=== PATIENT | female | born 1940 | race Caucasian/White ===

== ENCOUNTER 2016-06-27 10:33 | Inpatient (IN) | payer MEDICARE ==
[~2016-06-27] VITALS: Ht 167.6 cm; Wt 72.6 kg
[2016-06-27] VITALS (405 sets, daily range): BP systolic 74–150; BP diastolic 44–83; PULSE 71–137; TEMP 97.5–98.1; O2SAT 59–100
[~2016-06-27 10:33] MED LIST: AGGRENOX CAPSUL1 CAP PO; ALPRAZOLAM0.5 M2 PO; ALPRAZOLAM0.5 MG PO; AMLOPIDINE; ASPIRIN 32325 MG/TAB PO; ATIVAN 0.50.5 MG/TAB PO; ATORVASTATIN; BENAZEPRIL; CARDI-OMEGA1000 MG PO; CELEXA40 MG PO; CITALOPRAM40 MG PO; CLOPIDOGREL PO; COMBIVENT1 ARO IH; COZAAR100 MG PO; FISH OIL1 IU PO; GLUCOPHAGE1000 MG PO; IMDUR 60MG60 MG/TAB PO; ISMO 20MG20 MG PO; ISOSORBIDE MONO20 MG PO; LEVOTHYROXIN0.112 MG PO; LEVOXYL0.112 MG PO; LEXAPRO 10MG10 MG PO; LIPITOR40 MG PO; LISINOPRIL20 MG PO; LOPRESSOR 550 MG/TAB PO; METFORMIN500 MG PO; METOPROLOL25 MG PO; NORVASC 10MG10 MG PO; NORVASC10 MG PO; ONE DAILY1 TA1 PO; PRAVACHOL 40MG40 MG PO; PROVENTIL0.09 MG/A1 IH; SENNA-GEN8.6 MG PO; SYMBICORT1 AER IH; SYNTHROID0.125 MG/T PO; VITAMIN E-400200 IU PO; XANAX 0.5MG0.5 MG PO; XANAX0.5 MG PO; pro-air
[2016-06-27] MEDS ORDERED: HYGROTON 2525 MG/TAB PO (12:33)
[2016-06-27] MEDS ORDERED: XANAX 0.5MG0.5 MG PO (12:34)
[2016-06-27] MEDS ORDERED: ASPIRIN 81M81 MG/TA2 PO (12:39)
[2016-06-27] MEDS ORDERED: PLAVIX 75MG TAB75 MG PO (12:43)
[2016-06-27] MEDS ORDERED: PRILOSEC 20MG20 MG PO (12:43)
[2016-06-27 14:56] LABS: BASO # 0.1 (0.0-0.2); EOS % 0.1 % (0-4.0); GRAN # 5.3 (1.4-6.5); GRAN % 76.9 % (42.2-75.2); HEMATOCRIT 40.8 % (37.0-47.0); HEMOGLOBIN 12.9 g/dl (12.5-16.0); LYMPH # 0.9 (1.2-3.4); LYMPH % 12.4 % (20.0-51.0); MEAN CELL VOLUME 88 fl (80.0-100.0); MEAN CORPUSCULAR HEMOGLOBIN 28 pg (27.0-31.0); MEAN CORPUSCULAR HGB CONC 32 g/dl (33.0-37.0); MEAN PLATELET VOLUME 10.7 fl (7.4-10.4); MONO # 0.6 (0.1-0.6); PLATELET COUNT 183 K/mm3 (130-400); RED BLOOD COUNT 4.63 M/mm3 (4.10-5.30); REDCELL DISTRIBUTION WIDTH-CV 14.8 % (11.5-14.5); WHITE BLOOD COUNT 6.9 K/mm3 (4.8-10.8)
[2016-06-27 16:24] LABS: ADJUSTED CALCIUM 8.6 mg/dL (8.4-10.2); ALBUMIN 3.5 gm/dL (3.5-5.0); BILIRUBIN,TOTAL 0.5 mg/dL (0.0-1.0); CALCIUM 8.2 mg/dL (8.4-10.2); CREATININE, serum 0.84 mg/dL (0.52-1.25); MAGNESIUM 1.3 mg/dL (1.6-2.3); PHOSPHOROUS 3.1 mg/dL (2.5-4.5); TOTAL PROTEIN 6.4 gm/dL (6.4-8.2)
[2016-06-27 16:42] LABS: POTASSIUM 2.8 mmol/L (3.4-5.0)
[2016-06-28] VITALS (230 sets, daily range): BP systolic 109–165; BP diastolic 43–68; PULSE 80–91; TEMP 97–98.7; O2SAT 71–100
[2016-06-28 04:15] LABS: BASO # 0.1 (0.0-0.2); BASO % 0.8 % (0.0-2.0); EOS % 0.4 % (0-4.0); GRAN % 72.1 % (42.2-75.2); LYMPH # 1.4 (1.2-3.4); LYMPH % 16.3 % (20.0-51.0); MEAN CELL VOLUME 88 fl (80.0-100.0); MEAN CORPUSCULAR HGB CONC 32 g/dl (33.0-37.0); MONO # 0.9 (0.1-0.6); MONO % 10.3 % (1.7-9.3); PLATELET COUNT 190 K/mm3 (130-400); RED BLOOD COUNT 4.15 M/mm3 (4.10-5.30); WHITE BLOOD COUNT 8.3 K/mm3 (4.8-10.8)
[2016-06-28 04:17] LABS: HEMATOCRIT 36.5 % (37.0-47.0); HEMOGLOBIN 11.6 g/dl (12.5-16.0); MEAN CORPUSCULAR HEMOGLOBIN 28 pg (27.0-31.0)
[2016-06-28 04:27] LABS: CALCIUM 9.1 mg/dL (8.4-10.2); CREATININE, serum 0.86 mg/dL (0.52-1.25); POTASSIUM 4.2 mmol/L (3.4-5.0)
[2016-06-29] VITALS (7 sets, daily range): BP systolic 116–187; BP diastolic 50–97; PULSE 83–98; TEMP 97.4–98.7
[2016-06-30] VITALS (7 sets, daily range): BP systolic 116–152; BP diastolic 46–94; PULSE 70–80; TEMP 97.8–98.6
[2016-07-01] VITALS (7 sets, daily range): BP systolic 111–177; BP diastolic 38–83; PULSE 57–89; TEMP 97.9–98.7
[2016-07-01 12:31] LABS: ALBUMIN 4.1 gm/dL (3.5-5.0); BILIRUBIN,TOTAL 0.6 mg/dL (0.0-1.0); CALCIUM 9.1 mg/dL (8.4-10.2); CREATININE, serum 0.83 mg/dL (0.52-1.25); POTASSIUM 3.6 mmol/L (3.4-5.0); TOTAL PROTEIN 7.5 gm/dL (6.4-8.2)
[2016-07-01 12:39] LABS: INR 1.9 (0.8-3.0); PROTHROMBIN TIME 21.2 SECONDS (9.7-12.8)
[2016-07-02 02:43] VITALS: BP 151/61; PULSE 74; TEMP 98.7
[2016-07-02 09:32] VITALS: BP 138/106; PULSE 73; TEMP 97.5
[2016-07-02 12:01] VITALS: BP 127/59; PULSE 74; TEMP 97.6
[2016-07-02] MEDS ORDERED: CORDARONE200 MG/TAB PO (13:14)
[2016-07-02] MEDS ORDERED: ELIQUIS 5MG PO (15:17)
[2016-07-02] MEDS ORDERED: PREDNISONE10 MG PO (15:18)
== END 2016-07-02 13:45 | disposition home health service (06) | DRG 309 ==
LOC: IMCU 10:33 → ICU 11:37 → MEDICAL 06-28 14:50
PROC: 5A2204Z Restoration of Cardiac Rhythm, Single (ICD-10-PCS; principal; 2016-06-27)
DX: I48.91 Unspecified atrial fibrillation (principal); E44.0 Moderate protein-calorie malnutrition; J98.01 Acute bronchospasm; E11.9 Type 2 diabetes mellitus without complications; I25.10 Atherosclerotic heart disease of native coronary artery without angina pectoris; Z95.1 Presence of aortocoronary bypass graft; Z87.891 Personal history of nicotine dependence; Z95.2 Presence of prosthetic heart valve
CPT/HCPCS: 99223-AI; 99232-AI; 99233-AI; 99239; J0153; J0282; J1815; J2250; J2920; J3010; J3360; J7030; J7060

== ENCOUNTER 2016-08-14 02:51 | Inpatient (IN) | payer MEDICARE ==
[2016-08-14] VITALS (153 sets, daily range): BP systolic 104–143; BP diastolic 45–62; PULSE 64–82; TEMP 97.5–99.5; O2SAT 73–100
[~2016-08-14] VITALS: Ht 167.6 cm; Wt 67.3 kg
[~2016-08-14 02:51] MED LIST changes: +ASPIRIN 81M81 MG/TA2 PO; +CORDARONE200 MG/TAB PO; +ELIQUIS 5MG PO; +HYGROTON 2525 MG/TAB PO; +PLAVIX 75MG TAB75 MG PO; +PREDNISONE10 MG PO; +PRILOSEC 20MG20 MG PO
[2016-08-14 03:39] LABS: BASO # 0.1 (0.0-0.2); BASO % 0.9 % (0.0-2.0); EOS # 0.9 (0.0-0.7); EOS % 7.9 % (0-4.0); GRAN % 69.3 % (42.2-75.2); LYMPH # 1.6 (1.2-3.4); LYMPH % 13.9 % (20.0-51.0); MEAN CELL VOLUME 92 fl (80.0-100.0); MEAN CORPUSCULAR HGB CONC 31 g/dl (33.0-37.0); MEAN PLATELET VOLUME 9.8 fl (7.4-10.4); MONO # 0.9 (0.1-0.6); MONO % 7.6 % (1.7-9.3); PLATELET COUNT 376 K/mm3 (130-400); REDCELL DISTRIBUTION WIDTH-CV 17.5 % (11.5-14.5); WHITE BLOOD COUNT 11.5 K/mm3 (4.8-10.8)
[2016-08-14 03:45] LABS: HEMATOCRIT 22.1 % (37.0-47.0); HEMOGLOBIN 6.9 g/dl (12.5-16.0); MEAN CORPUSCULAR HEMOGLOBIN 29 pg (27.0-31.0)
[2016-08-14 03:49] LABS: ALBUMIN 3.6 gm/dL (3.5-5.0); BILIRUBIN,TOTAL 0.5 mg/dL (0.0-1.0); CALCIUM 8.7 mg/dL (8.4-10.2); CREATININE, serum 1.53 mg/dL (0.52-1.25); POTASSIUM 3.7 mmol/L (3.4-5.0); TOTAL PROTEIN 6.5 gm/dL (6.4-8.2)
[2016-08-14 04:06] LABS: TROPONIN-I 0.107 ng/mL (0.000-0.034)
[2016-08-14 04:11] LABS: INR 1.9 (0.8-3.0); PROTHROMBIN TIME 21.3 SECONDS (9.7-12.8)
[2016-08-14 04:13] LABS: PARTIAL THROMBOPLASTIN TIME 42.7 SECONDS (26.0-37.0)
[2016-08-14] MEDS ORDERED: PRILOTC (05:38)
[2016-08-14] MEDS ORDERED: ATROVENT I0.2 MG/1 M IH (06:11)
[2016-08-14] MEDS ORDERED: PROAIR HFA0.09 MG/AC IH (06:16)
[2016-08-14 07:27] LABS: PH 6 (5-8); URINE APPEARANCE Clear; URINE BILIRUBIN Negative (NEGATIVE); URINE BLOOD Negative (NEGATIVE); URINE COLOR Straw; URINE GLUCOSE Negative (NEGATIVE); URINE KETONE Negative (NEGATIVE); URINE UROBILINOGEN Negative (NEGATIVE)
[2016-08-14 07:39] LABS: SQUAMOUS EPITHELIAL 0-2 /hpf; URINE BACTERIA Rare /hpf; URINE WBC 0-2 /hpf
[2016-08-14 07:43] LABS: HEMOGLOBIN 7.2 g/dl (12.5-16.0)
[2016-08-14 09:07] LABS: TOTAL IRON BINDING CAPACITY 331 ug/dL (265-497)
[2016-08-14 09:34] LABS: FERRITIN 51 ng/mL (11-264)
[2016-08-14 15:14] LABS: HEMATOCRIT 26.7 % (37.0-47.0); HEMOGLOBIN 8.6 g/dl (12.5-16.0)
[2016-08-14 20:57] LABS: HEMOGLOBIN 9.2 g/dl (12.5-16.0)
[2016-08-15] VITALS (9 sets, daily range): BP systolic 97–130; BP diastolic 40–73; PULSE 57–75; TEMP 96.9–98.9
[2016-08-15 07:07] LABS: BASO # 0.1 (0.0-0.2); BASO % 0.9 % (0.0-2.0); EOS # 0.8 (0.0-0.7); EOS % 6.7 % (0-4.0); GRAN # 8.5 (1.4-6.5); GRAN % 72.4 % (42.2-75.2); LYMPH # 1.3 (1.2-3.4); LYMPH % 11.2 % (20.0-51.0); MEAN CELL VOLUME 92 fl (80.0-100.0); MEAN CORPUSCULAR HGB CONC 31 g/dl (33.0-37.0); MEAN PLATELET VOLUME 9.8 fl (7.4-10.4); MONO % 8.3 % (1.7-9.3); PLATELET COUNT 401 K/mm3 (130-400); RED BLOOD COUNT 2.95 M/mm3 (4.10-5.30); WHITE BLOOD COUNT 11.8 K/mm3 (4.8-10.8)
[2016-08-15 07:12] LABS: HEMATOCRIT 27.2 % (37.0-47.0); HEMOGLOBIN 8.5 g/dl (12.5-16.0); MEAN CORPUSCULAR HEMOGLOBIN 29 pg (27.0-31.0)
[2016-08-15 07:26] LABS: CALCIUM 8.2 mg/dL (8.4-10.2); CREATININE, serum 1.04 mg/dL (0.52-1.25); POTASSIUM 3.4 mmol/L (3.4-5.0)
[2016-08-15 20:23] LABS: HEMATOCRIT 25.7 % (37.0-47.0)
[2016-08-16 03:20] VITALS: BP 114/50; PULSE 64; TEMP 97.6
[2016-08-16 06:45] LABS: HEMATOCRIT 27.3 % (37.0-47.0); HEMOGLOBIN 8.4 g/dl (12.5-16.0)
[2016-08-16 07:29] VITALS: BP 126/53; PULSE 73; TEMP 98
[2016-08-16 12:28] VITALS: BP 123/44; PULSE 79; TEMP 98.7
[2016-08-16] MEDS ORDERED: FERROUS SU325 MG/TAB PO (14:37)
[2016-08-16] MEDS ORDERED: NITROSTAT0.4 MG/TAB SL (14:37)
[2016-08-16] MEDS ORDERED: NORVASC 5MG5 MG/TAB PO (14:38)
[2016-08-16] MEDS ORDERED: COZAAR 25MG25 MG/TAB PO (14:42)
== END 2016-08-16 16:15 | disposition home health service (06) | DRG 378 ==
LOC: COL.ER 02:51 → ICU 04:19 → MEDICAL 04:19 → IMCU 05:10 → MEDICAL 15:50
PROVIDERS: Family Medicine; Internal Medicine; Internal Medicine Gastroenterology; Nurse Practitioner Family
PROC: 0DJD8ZZ Inspection of Lower Intestinal Tract, Via Natural or Artificial Opening Endoscopic (ICD-10-PCS; 2016-08-15)
PROC: 0DB98ZX Excision of Duodenum, Via Natural or Artificial Opening Endoscopic, Diagnostic (ICD-10-PCS; principal; 2016-08-15 16:15)
PROC: 0D738ZZ Dilation of Lower Esophagus, Via Natural or Artificial Opening Endoscopic (ICD-10-PCS; 2016-08-15 16:15)
DX: K92.1 Melena (principal); D62 Acute posthemorrhagic anemia; N17.9 Acute kidney failure, unspecified; Z66 Do not resuscitate; D13.2 Benign neoplasm of duodenum; K22.2 Esophageal obstruction; I25.10 Atherosclerotic heart disease of native coronary artery without angina pectoris; Z95.1 Presence of aortocoronary bypass graft; Z95.2 Presence of prosthetic heart valve; I10 Essential (primary) hypertension; I48.0 Paroxysmal atrial fibrillation; J44.9 Chronic obstructive pulmonary disease, unspecified; E11.9 Type 2 diabetes mellitus without complications; Z87.891 Personal history of nicotine dependence
CPT/HCPCS: 99223-AI; 99233-AI; 99239; C1726; C9113; J2704; J3010; J7030; P9016

== ENCOUNTER 2016-08-22 10:08 | Inpatient (IN) | payer MEDICARE ==
[~2016-08-22] VITALS: Ht 167.6 cm; Wt 96.1 kg
[2016-08-22] VITALS (549 sets, daily range): BP systolic 104–138; BP diastolic 42–88; PULSE 72–77; TEMP 97.1–98.7; O2SAT 78–100
[~2016-08-22 10:08] MED LIST changes: +ATROVENT I0.2 MG/1 M IH; +COZAAR 25MG25 MG/TAB PO; +FERROUS SU325 MG/TAB PO; +NITROSTAT0.4 MG/TAB SL; +NORVASC 5MG5 MG/TAB PO; +PRILOTC; +PROAIR HFA0.09 MG/AC IH
[2016-08-22 10:45] LABS: BASO # 0.1 (0.0-0.2); EOS # 0.4 (0.0-0.7); EOS % 4.4 % (0-4.0); GRAN # 7.1 (1.4-6.5); GRAN % 78.6 % (42.2-75.2); HEMATOCRIT 26.1 % (37.0-47.0); HEMOGLOBIN 7.9 g/dl (12.5-16.0); LYMPH # 0.9 (1.2-3.4); LYMPH % 9.7 % (20.0-51.0); MEAN CELL VOLUME 92 fl (80.0-100.0); MEAN CORPUSCULAR HEMOGLOBIN 28 pg (27.0-31.0); MEAN CORPUSCULAR HGB CONC 30 g/dl (33.0-37.0); MEAN PLATELET VOLUME 9.6 fl (7.4-10.4); MONO # 0.5 (0.1-0.6); MONO % 5.9 % (1.7-9.3); PLATELET COUNT 311 K/mm3 (130-400); RED BLOOD COUNT 2.83 M/mm3 (4.10-5.30)
[2016-08-22 10:47] LABS: INR 1.1 (0.8-3.0); PROTHROMBIN TIME 11.8 SECONDS (9.7-12.8)
[2016-08-22 10:50] LABS: PARTIAL THROMBOPLASTIN TIME 37.9 SECONDS (26.0-37.0)
[2016-08-22 11:31] LABS: ADJUSTED CALCIUM 9.3 mg/dL (8.4-10.2); ALBUMIN 3.5 gm/dL (3.5-5.0); BILIRUBIN,TOTAL 0.6 mg/dL (0.0-1.0); CALCIUM 8.9 mg/dL (8.4-10.2); CREATININE, serum 1.23 mg/dL (0.52-1.25); TOTAL PROTEIN 6.6 gm/dL (6.4-8.2)
[2016-08-22 11:56] LABS: THYROID STIMULATING HORMONE 9.44 uIU/mL (0.465-4.680)
[2016-08-22 11:57] LABS: PH 5 (5-8); SQUAMOUS EPITHELIAL 0-2 /hpf; URINE APPEARANCE Clear; URINE BACTERIA None Seen /hpf; URINE BILIRUBIN Negative (NEGATIVE); URINE BLOOD Negative (NEGATIVE); URINE COLOR Yellow; URINE GLUCOSE Negative (NEGATIVE); URINE KETONE Negative (NEGATIVE); URINE RBC 0-2 /hpf; URINE UROBILINOGEN Negative (NEGATIVE); URINE WBC 0-2 /hpf
[2016-08-22] MEDS ORDERED: GLUCOPHAGE500 MG/TAB PO (15:30)
[2016-08-23] VITALS (353 sets, daily range): BP systolic 95–135; BP diastolic 41–74; PULSE 69–84; TEMP 97.8–99.2; O2SAT 76–100
[2016-08-23 07:27] LABS: BASO # 0.1 (0.0-0.2); EOS # 0.4 (0.0-0.7); EOS % 4.4 % (0-4.0); GRAN # 6.8 (1.4-6.5); GRAN % 70.9 % (42.2-75.2); LYMPH # 1.3 (1.2-3.4); LYMPH % 13.5 % (20.0-51.0); MEAN CORPUSCULAR HGB CONC 33 g/dl (33.0-37.0); MEAN PLATELET VOLUME 9.7 fl (7.4-10.4); MONO % 9.8 % (1.7-9.3); PLATELET COUNT 276 K/mm3 (130-400); RED BLOOD COUNT 4.22 M/mm3 (4.10-5.30); REDCELL DISTRIBUTION WIDTH-CV 15.9 % (11.5-14.5); WHITE BLOOD COUNT 9.7 K/mm3 (4.8-10.8)
[2016-08-23 07:36] LABS: HEMATOCRIT 36.6 % (37.0-47.0); HEMOGLOBIN 11.9 g/dl (12.5-16.0); MEAN CELL VOLUME 87 fl (80.0-100.0); MEAN CORPUSCULAR HEMOGLOBIN 28 pg (27.0-31.0)
[2016-08-23 07:44] LABS: CALCIUM 8.9 mg/dL (8.4-10.2); CREATININE, serum 0.93 mg/dL (0.52-1.25)
[2016-08-24] VITALS (11 sets, daily range): BP systolic 99–116; BP diastolic 39–65; PULSE 61–83; TEMP 97.6–98.5
[2016-08-24 12:45] LABS: BASO % 0.2 % (0.0-2.0); GRAN # 9.1 (1.4-6.5); GRAN % 89.8 % (42.2-75.2); LYMPH # 0.5 (1.2-3.4); LYMPH % 4.4 % (20.0-51.0); MEAN CELL VOLUME 88 fl (80.0-100.0); MEAN CORPUSCULAR HGB CONC 32 g/dl (33.0-37.0); MEAN PLATELET VOLUME 9.8 fl (7.4-10.4); MONO # 0.5 (0.1-0.6); MONO % 5.1 % (1.7-9.3); PLATELET COUNT 303 K/mm3 (130-400); RED BLOOD COUNT 3.85 M/mm3 (4.10-5.30); REDCELL DISTRIBUTION WIDTH-CV 15.9 % (11.5-14.5); WHITE BLOOD COUNT 10.2 K/mm3 (4.8-10.8)
[2016-08-24 12:48] LABS: HEMATOCRIT 33.8 % (37.0-47.0); HEMOGLOBIN 10.8 g/dl (12.5-16.0); MEAN CORPUSCULAR HEMOGLOBIN 28 pg (27.0-31.0)
[2016-08-25 02:19] VITALS: BP 116/55; PULSE 74; TEMP 98.3
[2016-08-25 08:00] LABS: MEAN CELL VOLUME 91 fl (80.0-100.0); MEAN CORPUSCULAR HGB CONC 30 g/dl (33.0-37.0); MEAN PLATELET VOLUME 10.5 fl (7.4-10.4); PLATELET COUNT 238 K/mm3 (130-400); RED BLOOD COUNT 3.83 M/mm3 (4.10-5.30); REDCELL DISTRIBUTION WIDTH-CV 16.2 % (11.5-14.5); WHITE BLOOD COUNT 8.8 K/mm3 (4.8-10.8)
[2016-08-25 08:03] LABS: HEMATOCRIT 34.9 % (37.0-47.0); HEMOGLOBIN 10.6 g/dl (12.5-16.0); MEAN CORPUSCULAR HEMOGLOBIN 28 pg (27.0-31.0)
[2016-08-25 08:11] LABS: CALCIUM 8.8 mg/dL (8.4-10.2); CREATININE, serum 1.04 mg/dL (0.52-1.25); POTASSIUM 4.2 mmol/L (3.4-5.0)
[2016-08-25 11:41] VITALS: BP 119/46; PULSE 72; TEMP 97.8
[2016-08-25 15:29] VITALS: BP 132/63; PULSE 81; TEMP 97.8
[2016-08-25] MEDS ORDERED: ASPIRIN E.C. 8181 MG PO (16:46)
[2016-08-25] MEDS ORDERED: TOPROL XL 25MG25 MG PO (17:10)
[2016-08-25] MEDS ORDERED: PREDNISONE20 MG PO (17:10)
== END 2016-08-25 17:50 | disposition home health service (06) | DRG 281 ==
LOC: COL.ER 10:08 → MEDICAL 11:52 → ICU 11:52 → MEDICAL 08-23 14:14
PROVIDERS: Emergency Medicine; Internal Medicine
PROC: B2111ZZ Fluoroscopy of Multiple Coronary Arteries using Low Osmolar Contrast (ICD-10-PCS; principal; 2016-08-23)
DX: I21.4 Non-ST elevation (NSTEMI) myocardial infarction (principal); D62 Acute posthemorrhagic anemia; J44.1 Chronic obstructive pulmonary disease with (acute) exacerbation; K92.2 Gastrointestinal hemorrhage, unspecified; T82.898A Other specified complication of vascular prosthetic devices, implants and grafts, initial encounter; Z66 Do not resuscitate; I10 Essential (primary) hypertension; I25.10 Atherosclerotic heart disease of native coronary artery without angina pectoris; E11.9 Type 2 diabetes mellitus without complications; I48.91 Unspecified atrial fibrillation; Z87.891 Personal history of nicotine dependence; Z95.5 Presence of coronary angioplasty implant and graft; Z95.1 Presence of aortocoronary bypass graft; Z95.2 Presence of prosthetic heart valve; K21.9 Gastro-esophageal reflux disease without esophagitis; K31.7 Polyp of stomach and duodenum
CPT/HCPCS: 99223-AI; 99233-AI; 99239; C1760; C1894; C9113; J1815; J2250; J2405; J2930; J3010; J7512; P9016; Q9967

== ENCOUNTER → 2016-09-21 | Outpatient (CLI) | payer MEDICARE ==
[~2016-09-21] MED LIST changes: +ASPIRIN E.C. 8181 MG PO; +GLUCOPHAGE500 MG/TAB PO; +PREDNISONE20 MG PO; +TOPROL XL 25MG25 MG PO
== END ==
LOC: COL.RAD 08:10
DX: J90 Pleural effusion, not elsewhere classified (principal); I25.810 Atherosclerosis of coronary artery bypass graft(s) without angina pectoris; J84.10 Pulmonary fibrosis, unspecified; I70.0 Atherosclerosis of aorta; J43.2 Centrilobular emphysema; M47.814 Spondylosis without myelopathy or radiculopathy, thoracic region; K44.9 Diaphragmatic hernia without obstruction or gangrene; K22.8 Other specified diseases of esophagus; Z95.1 Presence of aortocoronary bypass graft; Z98.890 Other specified postprocedural states
CPT/HCPCS: Q9967

== ENCOUNTER 2019-06-12 02:00 | Emergency (ER) | payer MEDICARE ==
[~2019-06-12] VITALS: Ht 170.2 cm; Wt 68.2 kg
[~2019-06-12 02:00] MED LIST changes: +ASMANEX HF200 MCG/Ac IH; +DIOVAN320 MG PO; +ELIQUIS 2.5 PO; +FLINTSTONES W/I1 CTB PO; +IPRATROPIUM BROM3 M1 IH; +LASIX 20MG TABL20 MG PO; +LASIX 40MG TABL40 MG PO; -LEVOXYL0.112 MG PO; +LEVOXYL0.125 MG PO; +LOPRESSOR 225 MG/TAB PO; +PACERONE400 MG PO; +TOPROL XL 50MG50 MG PO; +XARELTO15 MG PO
[2019-06-12 02:06] VITALS: TEMP 98
[2019-06-12] MEDS ORDERED: CORDARONE200 MG/TAB PO (02:10)
[2019-06-12] MEDS ORDERED: LASIX 40MG TABL40 MG PO (02:11)
[2019-06-12] MEDS ORDERED: LOPRESSOR 225 MG/TAB PO (02:12)
[2019-06-12] MEDS ORDERED: PRAVACHOL 40MG40 MG PO (02:13)
[2019-06-12] MEDS ORDERED: ELIQUIS 2.5 PO (02:13)
[2019-06-12 02:30] LABS: BASO # 0.1 (0.0-0.2); BASO % 1.4 % (0.0-2.0); EOS # 0.4 (0.0-0.7); EOS % 4.6 % (0-4.0); GRAN # 5.1 (1.4-6.5); GRAN % 66.8 % (42.2-75.2); LYMPH # 1.4 (1.2-3.4); LYMPH % 18.3 % (20.0-51.0); MEAN CELL VOLUME 105 fl (80.0-100.0); MEAN CORPUSCULAR HGB CONC 29 g/dl (33.0-37.0); MEAN PLATELET VOLUME 10.8 fl (7.4-10.4); MONO # 0.7 (0.1-0.6); MONO % 8.8 % (1.7-9.3); PLATELET COUNT 235 K/mm3 (130-400); RED BLOOD COUNT 2.93 M/mm3 (4.10-5.30); REDCELL DISTRIBUTION WIDTH-CV 16.2 % (11.5-14.5)
[2019-06-12 02:32] LABS: HEMATOCRIT 30.7 % (37.0-47.0); HEMOGLOBIN 8.8 g/dl (12.5-16.0); MEAN CORPUSCULAR HEMOGLOBIN 30 pg (27.0-31.0)
[2019-06-12 02:36] LABS: ALBUMIN 3.8 gm/dL (3.5-5.0); BILIRUBIN,TOTAL 0.4 mg/dL (0.0-1.0); CALCIUM 8.8 mg/dL (8.4-10.2); CREATININE, serum 1.85 (0.52-1.25); POTASSIUM 4.3 mmol/L (3.4-5.0); TOTAL PROTEIN 6.6 gm/dL (6.4-8.2)
[2019-06-12 04:12] LABS: COLLECTION METHOD CLEAN CATCH
[2019-06-12 04:26] LABS: MUCOUS Present /lpf; PH 8 (5-8); URINE APPEARANCE Cloudy; URINE BACTERIA Rare /hpf; URINE BILIRUBIN Negative (NEGATIVE); URINE BLOOD 3+ (NEGATIVE); URINE COLOR Red; URINE GLUCOSE Negative (NEGATIVE); URINE KETONE Negative (NEGATIVE); URINE LEUKOCYTE ESTERASE 2+ (NEGATIVE); URINE NITRATE Positive (NEGATIVE); URINE PROTEIN(semi-quant) 2+ (NEGATIVE); URINE RBC >50 /hpf; URINE TRIPLE PHOSPHATE CRYSTAL Present /hpf; URINE UROBILINOGEN Negative (NEGATIVE)
[2019-06-12] MEDS ORDERED: ZOFRAN ODT4 MG SL (04:41)
[2019-06-12] MEDS ORDERED: NORCO 325 MG-51 TAB PO (04:41)
[2019-06-12] MEDS ORDERED: BACTRIM DS 8001 TAB PO (04:41)
[2019-06-12 05:06] VITALS: BP 145/57; PULSE 48
== END 2019-06-12 05:20 | disposition home or self-care (01) ==
LOC: COL.ER 02:00
PROVIDERS: Emergency Medicine
DX: R10.9 Unspecified abdominal pain (principal); N30.90 Cystitis, unspecified without hematuria; I25.10 Atherosclerotic heart disease of native coronary artery without angina pectoris; I48.91 Unspecified atrial fibrillation; E11.9 Type 2 diabetes mellitus without complications; I10 Essential (primary) hypertension; K21.9 Gastro-esophageal reflux disease without esophagitis; E03.9 Hypothyroidism, unspecified; E78.5 Hyperlipidemia, unspecified; J44.9 Chronic obstructive pulmonary disease, unspecified; Z95.5 Presence of coronary angioplasty implant and graft; Z95.2 Presence of prosthetic heart valve; Z87.891 Personal history of nicotine dependence; Z79.82 Long term (current) use of aspirin; Z79.01 Long term (current) use of anticoagulants
CPT/HCPCS: A4216; J0696; J2405; J3010; J7030

== ENCOUNTER 2019-07-12 11:37 | Inpatient (IN) | payer MEDICARE ==
[~2019-07-12] VITALS: Ht 170.2 cm; Wt 69.3 kg
[2019-07-12] VITALS (8 sets, daily range): BP systolic 118–140; BP diastolic 42–68; PULSE 54–79; TEMP 97.6–98.8
[~2019-07-12 11:37] MED LIST changes: +BACTRIM DS 8001 TAB PO; +NORCO 325 MG-51 TAB PO; +ZOFRAN ODT4 MG SL
[2019-07-12 12:24] LABS: BASO # 0.1 (0.0-0.2); BASO % 1.1 % (0.0-2.0); EOS # 0.2 (0.0-0.7); EOS % 2.4 % (0-4.0); GRAN # 6.1 (1.4-6.5); GRAN % 77.4 % (42.2-75.2); LYMPH % 12.2 % (20.0-51.0); MEAN CELL VOLUME 97 fl (80.0-100.0); MEAN CORPUSCULAR HGB CONC 29 g/dl (33.0-37.0); MEAN PLATELET VOLUME 10.7 fl (7.4-10.4); MONO # 0.5 (0.1-0.6); MONO % 6.6 % (1.7-9.3); PLATELET COUNT 254 K/mm3 (130-400); RED BLOOD COUNT 2.27 M/mm3 (4.10-5.30); REDCELL DISTRIBUTION WIDTH-CV 16.7 % (11.5-14.5)
[2019-07-12 12:26] LABS: INR 1.3 (0.8-3.0); PROTHROMBIN TIME 14.9 SECONDS (9.7-12.8)
[2019-07-12 12:28] LABS: HEMATOCRIT 22.1 % (37.0-47.0); HEMOGLOBIN 6.3 g/dl (12.5-16.0); MEAN CORPUSCULAR HEMOGLOBIN 28 pg (27.0-31.0)
[2019-07-12 12:35] LABS: ALANINE AMINOTRANSFERASE 17 U/L (4-34); ALBUMIN 3.8 gm/dL (3.5-5.0); ALKALINE PHOSPHATASE 101 U/L (50-136); ANION GAP 6 mmol/L (7-16); AST,SGOT 25 U/L (15-37); BILIRUBIN,TOTAL 0.4 mg/dL (0.0-1.0); BLOOD UREA NITROGEN 34 mg/dL (7-17); CALCIUM 8.9 mg/dL (8.4-10.2); CARBON DIOXIDE 30 mmol/L (22-30); CHLORIDE 99 mmol/L (98-107); CREATININE, serum 2.23 (0.52-1.25); GLUCOSE 142 mg/dL (74-106); POTASSIUM 4.8 mmol/L (3.4-5.0); SODIUM 136 mmol/L (137-145); TOTAL PROTEIN 6.8 gm/dL (6.4-8.2)
[2019-07-12 12:46] LABS: TROPONIN-I < 0.012 ng/mL (0.000-0.035)
--- NOTE | 2019-07-12 14:22 | NUR ---
Patient arrived to Surgical unit and this nurse received report from ED department. Patient is a DNR, she has been for 1 year and lives alone. She is diabetic. She was admitted to the hospital due to weakness. She is to receive a unit of PRBC. Has an INT to her Right AC that is 20 Gauge, has NKDA, She is on Tele, one assist with walker to transfer, VSS at this time. She has a cardiac history. Patient resting in be comfortable, call light in reach and denies questions at this time. Patient wanted to know what blood type she was and she is B+. She is forgetful at times. Will continue to monitor.
--- NOTE | 2019-07-12 16:07 | NUR ---
Blood transfussion was started at 4:00 PM. Patient resting comfortable in bed at this time, call light in reach.
--- NOTE | 2019-07-12 19:00 | NUR ---
Report received, assumed care for hotel night auditor. Assessment complete. VS stable. A&Ox3-drowsy. Unit of PRBC infusing at 100ml/hr to right AC 20g without difficulty. Denies nausea/shortness of breath/pain. States she is slightly dizzy with ambulation. Instructed call for assistance to bathroom when DTV. Verbalizes understanding. Call light in reach. Will monitor.
[2019-07-12] MEDS ORDERED: IPRATROPIUM BROM3 M1 IH (19:39)
[2019-07-12] MEDS ORDERED: XANAX 0.5MG0.5 MG PO (19:43)
[2019-07-12] MEDS ORDERED: MIRALAX PA17 GM/Dose PO (19:45)
--- NOTE | 2019-07-12 19:58 | NUR ---
Reported off to night nurse, VIJAY Welch. I asked for her to clarify orders for Blood sugar checks ACHS as this was reported to this nurse via ED department when patient arrived to Surgical unit, but not in doctors orders. Also asked for clarification on diet order. This nurse spoke with Dr. Garcia and he said to put her on a regular diet over the weekend, but didn't clarify AHA or ADA. Night nurse will follow up on this. This nurse called patient's daughter to review medications with her and she reported that patient receives Xanax at bed time and PRN due to anxiety; she also get breathing treatments BID PRN and takes Miralax PRN. These meds were added to the patient's home med list and night nurse will follow up with physician on their approval.
[2019-07-12 21:47] LABS: HEMATOCRIT 26.3 % (37.0-47.0)
[2019-07-13] VITALS (7 sets, daily range): BP systolic 105–144; BP diastolic 41–68; PULSE 56–68; TEMP 98–99.3
--- NOTE | 2019-07-13 05:20 | NUR ---
Notified cardiopulmonary of request for PRN breathing treatment. States they will be up as soon as they can.
[2019-07-13 06:23] LABS: BASO # 0.1 (0.0-0.2); BASO % 0.7 % (0.0-2.0); EOS # 0.2 (0.0-0.7); EOS % 2.3 % (0-4.0); GRAN # 7.9 (1.4-6.5); GRAN % 80.7 % (42.2-75.2); LYMPH # 0.6 (1.2-3.4); LYMPH % 5.9 % (20.0-51.0); MEAN CELL VOLUME 94 fl (80.0-100.0); MEAN CORPUSCULAR HGB CONC 30 g/dl (33.0-37.0); MEAN PLATELET VOLUME 10.7 fl (7.4-10.4); MONO % 9.9 % (1.7-9.3); PLATELET COUNT 205 K/mm3 (130-400); RED BLOOD COUNT 2.64 M/mm3 (4.10-5.30); REDCELL DISTRIBUTION WIDTH-CV 16.9 % (11.5-14.5)
[2019-07-13 06:28] LABS: CALCIUM 8.5 mg/dL (8.4-10.2); CREATININE, serum 1.79 (0.52-1.25); POTASSIUM 3.9 mmol/L (3.4-5.0)
[2019-07-13 06:34] LABS: HEMATOCRIT 24.8 % (37.0-47.0); HEMOGLOBIN 7.4 g/dl (12.5-16.0); MEAN CORPUSCULAR HEMOGLOBIN 28 pg (27.0-31.0)
[2019-07-13 14:24] LABS: HEMOGLOBIN 8.9 g/dl (12.5-16.0)
--- NOTE | 2019-07-13 18:04 | NUR ---
Patient currently resting in bed. Patient showered with 1x assist this evening. Patient has reported that she did not sleep well overnight and is feeling lethargic today. Patient also asked after her H&H several times today, assured patient that numbers were improved. Patient has continued to deny pain, but did report one dark stool this morning. Patient denies further needs at this time, call light within reach.
--- NOTE | 2019-07-13 21:38 | NUR ---
PATIENT DOING WELL TONIGHT. SEEMS DROWSY AND SLEEPY. REORIENTED PATIENT TO USE CALL LIGHT, DUE TO FACT OF HAVING MULTIPLE CORDS HOOKED UP BUT PATIENT KEEPS FORGETTING. 2 L O2 VIA NC APPLIED TO MAINTAIN O2 SATS ABOVE 91. TOOK SCHEDULED MEDICATIONS CRUSHED IN APPLESAUCE WITHOUT ISSUE. IV TO R AC INFUSING WITHOUT ISSUE. DENIES PAIN. NO FURTHER NEEDS AT THIS TIME. PATIENT RESTING IN BED. WILL CONTINUE TO MONITOR. CALL LIGHT WITHIN REACH.
[2019-07-14] VITALS (9 sets, daily range): BP systolic 101–144; BP diastolic 37–85; PULSE 58–79; TEMP 97.5–98.7
[2019-07-14 06:13] LABS: BASO # 0.1 (0.0-0.2); BASO % 0.9 % (0.0-2.0); EOS # 0.1 (0.0-0.7); EOS % 1.2 % (0-4.0); GRAN # 7.3 (1.4-6.5); GRAN % 78.2 % (42.2-75.2); LYMPH # 0.8 (1.2-3.4); LYMPH % 8.3 % (20.0-51.0); MEAN CELL VOLUME 94 fl (80.0-100.0); MEAN CORPUSCULAR HGB CONC 29 g/dl (33.0-37.0); MEAN PLATELET VOLUME 10.6 fl (7.4-10.4); PLATELET COUNT 193 K/mm3 (130-400); RED BLOOD COUNT 2.51 M/mm3 (4.10-5.30); REDCELL DISTRIBUTION WIDTH-CV 16.4 % (11.5-14.5)
[2019-07-14 06:16] LABS: HEMATOCRIT 23.6 % (37.0-47.0); HEMOGLOBIN 6.9 g/dl (12.5-16.0); MEAN CORPUSCULAR HEMOGLOBIN 27 pg (27.0-31.0)
[2019-07-14 06:24] LABS: CALCIUM 8.5 mg/dL (8.4-10.2); CREATININE, serum 1.53 (0.52-1.25); POTASSIUM 3.8 mmol/L (3.4-5.0)
--- NOTE | 2019-07-14 11:09 | NUR ---
Patient resting in bed at this time, call light in reach. Blood transfusion was started. Will continue to monitor.
--- NOTE | 2019-07-14 11:15 | NUR ---
Patient resting comfortable at this time. Will continue to monitor.
--- NOTE | 2019-07-14 19:45 | NUR ---
Patient tolerated blood transfussion. She had some confusion this evening reporting that she needed to go home to have her help her. She then in the next sentence stated that she remembered that he had . The bed alarm was set, due to patient not using the call light appropriatly. Patient was started on bowel prep. Reported off to night nurse.
[2019-07-14 19:57] LABS: HEMATOCRIT 29.6 % (37.0-47.0); HEMOGLOBIN 8.9 g/dl (12.5-16.0)
--- NOTE | 2019-07-14 22:15 | NUR ---
PATIENT DOING WELL TONIGHT. DENYING PAIN. STATES SHE IS VERY TIRED. SLOWLY WORKING ON BOWEL PREP AND IS STRUGGLING TO GET IT DOWN, HAS PASSED X2 SMALL FORMED STOOLS. TOOK SCHEDULED MEDICATION CRUSHED IN APPLESAUCE. IVF TO R AC INFUSING WITHOUT ISSUE. CONSENT FOR EGD AND COLONOSCOPY SIGNED AND IN CHART. NO FURTHER NEEDS AT THIS TIME. WILL CONTINUE TO MONITOR. CALL LIGHT WITHIN REACH.
[2019-07-15] VITALS (13 sets, daily range): BP systolic 100–153; BP diastolic 49–87; PULSE 57–74; TEMP 97.3–98.7
--- NOTE | 2019-07-15 02:37 | NUR ---
IV TO R AC INFILTRATED. SEVERAL ATTEMPTS MADE TO PLACE NEW IV FAILED. CHARGE NURSE ATTEMPTED X2, LEASING SALES CONSULTANT ATTEMPTED X2. CALL PLACED TO CHRIS CRABTREE TO UPDATE HER ON SITUATION AND ENCOURAGE PICC PLACEMENT FOR FUTURE. CHRIS STATES SHE IS GOING TO COME UP AND SEE IF SHE CAN PLACE AN IV. NO FURTHER NEEDS AT THIS TIME. WILL CONTINUE TO MONITOR.
[2019-07-15 08:04] LABS: BASO # 0.1 (0.0-0.2); BASO % 0.8 % (0.0-2.0); EOS # 0.1 (0.0-0.7); EOS % 1.1 % (0-4.0); GRAN # 4.9 (1.4-6.5); LYMPH # 0.6 (1.2-3.4); MEAN CELL VOLUME 90 fl (80.0-100.0); MEAN CORPUSCULAR HGB CONC 30 g/dl (33.0-37.0); MONO # 0.6 (0.1-0.6); MONO % 9.5 % (1.7-9.3); PLATELET COUNT 138 K/mm3 (130-400); RED BLOOD COUNT 2.87 M/mm3 (4.10-5.30); REDCELL DISTRIBUTION WIDTH-CV 17.2 % (11.5-14.5)
[2019-07-15 08:08] LABS: HEMATOCRIT 25.8 % (37.0-47.0); HEMOGLOBIN 7.8 g/dl (12.5-16.0); MEAN CORPUSCULAR HEMOGLOBIN 27 pg (27.0-31.0)
[2019-07-15 08:09] LABS: CALCIUM 8.4 mg/dL (8.4-10.2); CREATININE, serum 1.42 (0.52-1.25); POTASSIUM 3.6 mmol/L (3.4-5.0)
--- NOTE | 2019-07-15 11:20 | NUR ---
First visit from the plastic molder. No needs right now.
--- NOTE | 2019-07-15 12:24 | NUR ---
Patient is leaving for surgery at this time. Fleets Enema was given and patient's stool is now a yellow color.
--- NOTE | 2019-07-15 14:28 | NUR ---
SW met with the patient to discuss discharge plan. The patient lives alone in [place]. Her three children Anibal Lockett (ph#[phone]), Rachel Liu (ph#[phone]), and Diogo Lockett (ph#[phone]) also live in [place]. She reports independence with ADLs and has a cane and rolaider that she borrowed from a friend. The patient's PCP is Dr. Marah Terry and she receives her medications at [facility]. She reports no difficulties obtaining her meds. The patient's DPOA-HC is in EMR. Her DPOA-HC is her son Anibal. The alternate is Rachel. The patient plans to return home upon discharge. PT is recommending home health. STEFANI discussed this with the patient. The patient reports that she just got done with services from [facility] and does not feel like she needs home health again at this time. STEFANI then contacted and updated the patient's son, Anibal. Anibal reports that home health was very helpful to the patient and that he would like to proceed with a referral to [facility]. He states that him and his siblings will talk to the patient about this. SW to update the patient. STEFANI contacted and faxed a referral to Kadie at [facility]. Kadie reports that they are able to accept the patient for services. SW to inform the patient and family and will continue to follow.
--- NOTE | 2019-07-15 14:54 | NUR ---
Patient resting in bed at this time, call light in reach following her procedure. Patient denies pain at this time. Currently on 0.5 L oxygen NC following procedure.
--- NOTE | 2019-07-15 17:00 | NUR ---
Patient returned from her surgery this afternoon and upon observation saw a skin tear to her righ forearm. Patient reported that it had happened when she had her procedure done. Area was cleaned and this nurse applied steri strips and secured with a bandage. Patient tolerated with only minimal discomfort reported. Patient was able to ambulate independently to the toilet and back to her bed this afternoon. She was very tired from not getting much sleep last night so did take a long nap this afternoon. Patient was seen by Dr. Munson see all new orders. IV fluids were stopped this evening. Dr. Munson was able to contact patient's daughter to provide her an update on the patient.
--- NOTE | 2019-07-15 21:15 | NUR ---
Reported off to night nurse.
[2019-07-16 00:33] VITALS: BP 148/47; PULSE 67; TEMP 98.1
--- NOTE | 2019-07-16 02:12 | NUR ---
Pt is currently sleeping in her bed lying on her right side. Warm blanket was applied at this time pt did state that she gets cold during the night. Pt has her call light within reach
--- NOTE | 2019-07-16 03:02 | NUR ---
Pt is currently sleeping in bed at this time. Her call light is within reach and her bed is in lowest position .
[2019-07-16 04:12] VITALS: BP 126/47; PULSE 71; TEMP 98.5
--- NOTE | 2019-07-16 06:10 | NUR ---
Pt currently awake lying in bed. Pt did take morning medications well. I did notice that pt tends to chew on her pills before swallowing she stated that she sometimes does this at home, it helps her swallow them. Pt drink water with her pill. She has her call light within reach and her bed is in lowest position
[2019-07-16 07:06] LABS: BASO # 0.1 (0.0-0.2); BASO % 0.5 % (0.0-2.0); EOS # 0.3 (0.0-0.7); EOS % 2.7 % (0-4.0); GRAN # 8.9 (1.4-6.5); GRAN % 85.3 % (42.2-75.2); LYMPH # 0.4 (1.2-3.4); LYMPH % 3.8 % (20.0-51.0); MEAN CELL VOLUME 90 fl (80.0-100.0); MEAN CORPUSCULAR HGB CONC 30 g/dl (33.0-37.0); MEAN PLATELET VOLUME 11.1 fl (7.4-10.4); MONO # 0.8 (0.1-0.6); MONO % 7.2 % (1.7-9.3); PLATELET COUNT 184 K/mm3 (130-400); RED BLOOD COUNT 2.96 M/mm3 (4.10-5.30); REDCELL DISTRIBUTION WIDTH-CV 17.3 % (11.5-14.5)
[2019-07-16 07:07] LABS: HEMATOCRIT 26.6 % (37.0-47.0); MEAN CORPUSCULAR HEMOGLOBIN 27 pg (27.0-31.0)
[2019-07-16 07:09] LABS: CALCIUM 8.4 mg/dL (8.4-10.2); CREATININE, serum 1.38 (0.52-1.25); POTASSIUM 3.3 mmol/L (3.4-5.0)
[2019-07-16 07:58] VITALS: BP 117/36; PULSE 72; TEMP 98.1
--- NOTE | 2019-07-16 08:32 | NUR ---
Reported off to VIJAY Kate. Pt is currently sitting up in her chair. She has her call light within reach.
--- NOTE | 2019-07-16 10:33 | NUR ---
STEFANI met with the patient to introduce oneself and to discuss home health. The patient was agreeable to HHS with [facility]. Will continue to monitor.
[2019-07-16 11:24] VITALS: BP 139/50; PULSE 69; TEMP 98
--- NOTE | 2019-07-16 11:46 | NUR ---
PT OUT TO [facility] WITH [facility] TO AMBULATE. RETURNED TO ROOM AND ATE BREAKFAST. PT IS A/O X3. PLAN ON DISCHARGE LATER TODAY.
[2019-07-16] MEDS ORDERED: FERROUS SU325 MG/TAB PO (12:03)
--- NOTE | 2019-07-16 13:36 | NUR ---
The patient is to discharge home with [facility] today, 07/15. SW presented the IM form to the patient. The patient understood and due to COVID-19 social distancing rules the patient gave SW persmission to sign on her behalf. The original was placed in the chart and copy was given to patient. STEFANI faxed discharge orders to [facility]. There are no additional needs at this time.
--- NOTE | 2019-07-16 14:39 | NUR ---
REVIEWED DISCHARGE INSTRUCTIONS WITH PT. QUESTIONS ANSWERED. PT TAKEN TO EXIT PER WHEEL CHAIR.
== END 2019-07-16 14:51 | disposition home or self-care (01) | DRG 378 ==
LOC: COL.ER 11:37 → SURG 14:05
PROVIDERS: Emergency Medicine; Internal Medicine Gastroenterology; Nurse Practitioner Family; Physician Assistant; ADMIT Internal Medicine
PROC: 0DBH8ZZ Excision of Cecum, Via Natural or Artificial Opening Endoscopic (ICD-10-PCS; 2019-07-15)
PROC: 0DBL8ZZ Excision of Transverse Colon, Via Natural or Artificial Opening Endoscopic (ICD-10-PCS; 2019-07-15)
PROC: 0DB98ZZ Excision of Duodenum, Via Natural or Artificial Opening Endoscopic (ICD-10-PCS; principal; 2019-07-15 12:30)
PROC: 0D738ZZ Dilation of Lower Esophagus, Via Natural or Artificial Opening Endoscopic (ICD-10-PCS; 2019-07-15 12:30)
DX: K92.1 Melena (principal); D62 Acute posthemorrhagic anemia; N17.9 Acute kidney failure, unspecified; E87.2 Acidosis; I50.22 Chronic systolic (congestive) heart failure; D13.2 Benign neoplasm of duodenum; K22.2 Esophageal obstruction; K59.00 Constipation, unspecified; Z66 Do not resuscitate; I48.0 Paroxysmal atrial fibrillation; K57.30 Diverticulosis of large intestine without perforation or abscess without bleeding; E87.6 Hypokalemia; E03.9 Hypothyroidism, unspecified; E78.5 Hyperlipidemia, unspecified; I25.10 Atherosclerotic heart disease of native coronary artery without angina pectoris; D12.6 Benign neoplasm of colon, unspecified; I10 Essential (primary) hypertension; E11.9 Type 2 diabetes mellitus without complications; J44.9 Chronic obstructive pulmonary disease, unspecified; K21.9 Gastro-esophageal reflux disease without esophagitis; Z95.1 Presence of aortocoronary bypass graft; Z86.73 Personal history of transient ischemic attack (TIA), and cerebral infarction without residual deficits
CPT/HCPCS: 99222-AI; 99232-AI; 99239; A9284; C1726; C9113; J2704; J7030; P9016

== ENCOUNTER 2019-08-10 20:03 | Inpatient (IN) | payer MEDICARE ==
[~2019-08-10] VITALS: Ht 170.2 cm; Wt 74.2 kg
[~2019-08-10 20:03] MED LIST changes: +MIRALAX PA17 GM/Dose PO
[2019-08-10 21:37] LABS: BASO # 0.1 (0.0-0.2); BASO % 1.2 % (0.0-2.0); EOS # 0.4 (0.0-0.7); EOS % 3.7 % (0-4.0); GRAN # 7.8 (1.4-6.5); GRAN % 77.9 % (42.2-75.2); HEMATOCRIT 35.2 % (37.0-47.0); HEMOGLOBIN 10.4 g/dl (12.5-16.0); LYMPH % 9.5 % (20.0-51.0); MEAN CELL VOLUME 92 fl (80.0-100.0); MEAN CORPUSCULAR HEMOGLOBIN 27 pg (27.0-31.0); MEAN CORPUSCULAR HGB CONC 30 g/dl (33.0-37.0); MEAN PLATELET VOLUME 10.9 fl (7.4-10.4); MONO # 0.7 (0.1-0.6); MONO % 6.8 % (1.7-9.3); PLATELET COUNT 201 K/mm3 (130-400); RED BLOOD COUNT 3.83 M/mm3 (4.10-5.30); REDCELL DISTRIBUTION WIDTH-CV 16.9 % (11.5-14.5)
[2019-08-10 21:55] LABS: ALBUMIN 3.9 gm/dL (3.5-5.0); BILIRUBIN,TOTAL 0.4 mg/dL (0.0-1.0); CALCIUM 8.9 mg/dL (8.4-10.2); CREATININE, serum 1.87 (0.52-1.25); POTASSIUM 4.4 mmol/L (3.4-5.0); TOTAL PROTEIN 6.9 gm/dL (6.4-8.2)
[2019-08-10 22:26] LABS: PRE ALBUMIN 21.7 mg/dL (17.6-36.0)
[2019-08-10 22:39] LABS: PROTHROMBIN TIME 10.6 SECONDS (9.7-12.8)
--- NOTE | 2019-08-10 22:45 | NUR ---
ADMITTED PT PER STRETCHER FROM ED, DX WITH FRACTURED LEFT HIP. IS ALERT AND ORIENTED X4. HAS SL TO LEFT FOREARM, NO REDNESS OR SWELLING NOTED.
[2019-08-10 22:53] VITALS: BP 127/33; PULSE 77; TEMP 97.9
[2019-08-10] MEDS ORDERED: LASIX 40MG TABL40 MG PO (23:07)
--- NOTE | 2019-08-10 23:19 | NUR ---
Medicated with Morphine 2mg IVP at this time for left hip pain.
[2019-08-10] MEDS ORDERED: IPRATROPIUM BROM3 M1 IH (23:23)
[2019-08-11] VITALS (10 sets, daily range): BP systolic 108–141; BP diastolic 39–56; PULSE 67–89; TEMP 97.3–98.5
--- NOTE | 2019-08-11 00:57 | NUR ---
PLACEMENT OF 16FR NICHOLE CATHETER SUCCESSFUL BY RAFAEL LINARES. RETURN OF LIGHT YELLOW URINE. PLACED PT ON HER RIGHT SIDE FOR COMFORT. MORPHINE 2MG IVP GIVEN.
[2019-08-11 01:29] LABS: COLLECTION METHOD CLEAN CATCH
--- NOTE | 2019-08-11 01:30 | NUR ---
UA sent to lab. Medicated with Xanax per her request for anxiety. IVF infusing to left arm without problem.
[2019-08-11 01:34] LABS: MUCOUS Present /lpf; PH 6 (5-8); SQUAMOUS EPITHELIAL None Seen /hpf; URINE APPEARANCE Clear; URINE BACTERIA None Seen /hpf; URINE BILIRUBIN Negative (NEGATIVE); URINE BLOOD Negative (NEGATIVE); URINE COLOR Yellow; URINE GLUCOSE Negative (NEGATIVE); URINE KETONE Negative (NEGATIVE); URINE LEUKOCYTE ESTERASE Negative (NEGATIVE); URINE NITRATE Negative (NEGATIVE); URINE PROTEIN(semi-quant) Negative (NEGATIVE); URINE RBC 0-2 /hpf
--- NOTE | 2019-08-11 02:25 | NUR ---
Pt resting with eyes closed at this time.
--- NOTE | 2019-08-11 03:14 | NUR ---
REPORTS PAIN TO LEFT HIP 10/10, MEDICATED WITH MORPHINE 2MG IVP AT THIS TIME.
--- NOTE | 2019-08-11 05:32 | NUR ---
MEDICATED WITH MORPHINE 2MG IVP FOR PAIN TO LEFT HIP. ICE PACK APPLIED.
[2019-08-11 05:50] LABS: BASO # 0.1 (0.0-0.2); EOS # 0.4 (0.0-0.7); EOS % 4.5 % (0-4.0); GRAN # 6.1 (1.4-6.5); GRAN % 77.4 % (42.2-75.2); HEMATOCRIT 38.3 % (37.0-47.0); HEMOGLOBIN 11.4 g/dl (12.5-16.0); LYMPH # 0.7 (1.2-3.4); LYMPH % 8.8 % (20.0-51.0); MEAN CELL VOLUME 92 fl (80.0-100.0); MEAN CORPUSCULAR HEMOGLOBIN 27 pg (27.0-31.0); MEAN CORPUSCULAR HGB CONC 30 g/dl (33.0-37.0); MEAN PLATELET VOLUME 10.9 fl (7.4-10.4); MONO # 0.6 (0.1-0.6); MONO % 7.8 % (1.7-9.3); PLATELET COUNT 132 K/mm3 (130-400); RED BLOOD COUNT 4.17 M/mm3 (4.10-5.30)
[2019-08-11 06:03] LABS: ALBUMIN 3.2 gm/dL (3.5-5.0); BILIRUBIN,TOTAL 0.4 mg/dL (0.0-1.0); CALCIUM 8.8 mg/dL (8.4-10.2); CREATININE, serum 1.57 (0.52-1.25); TOTAL PROTEIN 5.9 gm/dL (6.4-8.2)
--- NOTE | 2019-08-11 08:31 | NUR ---
Patient resting in bed on right side. lying this way her pain is controlled. denies the need for pain medication at this time. Consult for Cardiology called to Dr. Andino. Echo order & ultrasound made aware. Spoke with Aleena with ortho & let her know we are waiting on cardiac clerance. Patient took or amiodrone crushed with sip of water. She remains NPO. Denies nausea. IVf per orders. Joe to DD yellow clear urine. Scds ble. Denzel to Right.
--- NOTE | 2019-08-11 11:41 | NUR ---
Patient to Or with Naya. Patient Ivf to [place]. Consent obtained, her son updated. Pain present, morphine has been given.
--- NOTE | 2019-08-11 18:27 | NUR ---
Patient has returned from OR. She is sleepy. Vitals stable. no interest in food. Scds & irene Ble. Aquacell dressing to hip CDI. ICe pack. Ivf. WIll report off to night nurse
--- NOTE | 2019-08-11 20:50 | NUR ---
PT IN BED, IS ALERT ORIENTED X2. TAKES HS MEDS CRUSHED IN APPLESAUCE, INCLUDING XANAX AND OXYCODONE. REPORTS LEFT HIP PAIN 8/10, REPOSITIONED TO RIGHT SIDE PER HER REQUEST WITH PILLOW BETWEEN KNEES. AQUACEL INTACT TO LEFT HIP. IVF INFUSING TO LEFT FOREARM SITE WITHOUT PROBLEM. POST OP VS COMPLETE. WEARING OXYGEN AT 2L/NC DUE TO SLEEPY STATE.
[2019-08-12 00:04] VITALS: BP 105/36; PULSE 85; TEMP 98.4
--- NOTE | 2019-08-12 00:10 | NUR ---
Pt calling out for help, has gown off and thinks she needs to go to the bathroom to urinate. Re-oriented patient, assisted with replacing of gown. Pt verbalized pain to left hip 10/03, medicated with Leadore 7.5mg 2 tabs crushed in applesauce. Pt able to tell this nurse where she was and why she was here.
[2019-08-12 03:51] VITALS: BP 103/32; PULSE 70; TEMP 98.6
--- NOTE | 2019-08-12 04:00 | NUR ---
IVF CAPPED AT THIS TIME.
--- NOTE | 2019-08-12 05:50 | NUR ---
PT IN BED, ASKING FOR PAIN MEDS. MEDICATED WITH OXYCODONE 10MG PO NOW WITH SYNTHROID, CRUSHED IN APPLESAUCE. RATES PAIN 6/10 WITH MOVEMENT TO LEFT HIP.
[2019-08-12 06:26] LABS: CALCIUM 8.4 mg/dL (8.4-10.2); CREATININE, serum 1.61 (0.52-1.25); POTASSIUM 4.3 mmol/L (3.4-5.0)
[2019-08-12 07:25] VITALS: BP 103/34; PULSE 74; TEMP 98.3
[2019-08-12 07:33] LABS: BASO # 0.1 (0.0-0.2); BASO % 0.8 % (0.0-2.0); EOS # 0.5 (0.0-0.7); EOS % 3.8 % (0-4.0); GRAN # 9.6 (1.4-6.5); LYMPH # 0.8 (1.2-3.4); LYMPH % 6.2 % (20.0-51.0); MEAN CELL VOLUME 93 fl (80.0-100.0); MEAN CORPUSCULAR HGB CONC 30 g/dl (33.0-37.0); MEAN PLATELET VOLUME 11.2 fl (7.4-10.4); MONO # 1.1 (0.1-0.6); MONO % 8.9 % (1.7-9.3); PLATELET COUNT 169 K/mm3 (130-400); RED BLOOD COUNT 3.06 M/mm3 (4.10-5.30); REDCELL DISTRIBUTION WIDTH-CV 17.1 % (11.5-14.5)
[2019-08-12 07:34] LABS: HEMATOCRIT 28.5 % (37.0-47.0); MEAN CORPUSCULAR HEMOGLOBIN 28 pg (27.0-31.0)
[2019-08-12 07:35] LABS: HEMOGLOBIN 8.5 g/dl (12.5-16.0)
--- NOTE | 2019-08-12 08:12 | NUR ---
PATIENT ON 2LPM(93%), LUNG SOUNDS LEFT-COARSE, LUNGS SOUND RIGHT-DIMINISHED.
[2019-08-12] MEDS ORDERED: PROAIR HFA0.09 MG/AC IH (09:57)
[2019-08-12] MEDS ORDERED: QVAR REDIHALE10.6 G1 IH (09:58)
[2019-08-12] MEDS ORDERED: LASIX 40MG TABL40 MG PO (10:00)
--- NOTE | 2019-08-12 10:23 | NUR ---
SW met with the patient to discuss discharge plan. The patient lives alone in [place]. Her three children: Anibal Lockett (ph#[phone]), Rachel Liu (ph#[phone]), and Diogo Lockett (ph#[phone]) also live in [place]. She reports independence with ADLs prior to hospitalization and has a walker, showerchair, and toliet riser. She also receives home health services from [facility]. SW updated and confirmed services from [facility] at [facility]. The patient's PCP is Dr. Marah Terry and she receives her medications at [facility]. She reports no difficulties obtaining her meds. The patient's advanced directives are in EMR. Her DPOA-HC is her son, Anibal. The patient had a left hip fracture. PT is recommending IPR. SW discussed IPR and post-acute rehab with the patient. The patient was agreeable to rehab and chose 1) [facility] 2) [facility]. SW contacted and faxed a referral to both facilities. SW awaiting their screens. SW also contacted and updated the patient's son, Anibal. Anibal was in agreeance to rehab and supportive of the patient's preferences. SW to continue to follow.
--- NOTE | 2019-08-12 11:05 | NUR ---
Patient alert and oriented, answers questions appropriately. LLE with neuros intact, pulses palpable. No numbness or tingling to LLE. Limited movement to LLE. WBAT. Aquacel to left hip CDI. INDIRA hose and SCDs on bilaterally. Post op exercises reviewed with patient. No c/o at this time.
[2019-08-12 11:19] VITALS: BP 105/39; PULSE 73; TEMP 97.7
--- NOTE | 2019-08-12 11:26 | NUR ---
Lawanda at [facility] and Jaswant at [facility] report that they are both able to accept the patient, pending COVID results. A COVID test was ordered today. SW to update the patient and will continue to follow.
[2019-08-12 15:25] VITALS: BP 122/44; PULSE 76; TEMP 97.7
[2019-08-12 19:36] VITALS: BP 135/53; PULSE 72; TEMP 98.2
--- NOTE | 2019-08-12 20:10 | NUR ---
At time of assessment, patient is resting in recliner. She appears emotional and states "I don't know what to do, I just don't feel good." She answers orientation questions correctly but still seems a little unsure of the situation. She is assisted x2 to the bed after evening medication administration and states she is ready to get sleep. Her left hip is nonedematous and is not red. It is covered with an aquacell dressing that is CDI. She is given scheduled Tylenol for pain, as she does not request more intense pain medication. Her lung sounds are clear, heart sounds normal, no edema is present. Urine out of vega is yellow and clear. Patient is currently resting and I will monitor throughout the night.
[2019-08-13 00:27] VITALS: BP 143/52; PULSE 70; TEMP 97.7
--- NOTE | 2019-08-13 04:49 | NUR ---
Patient has slept for a few hours tonight. She has received a roxycodone and a norco pill tonight to manage pain. She is currently awake watching TV. Her left forearm IV started leaking, so Dana Cerna initiated a new IV in her right wrist. No other concerns at this time.
[2019-08-13 04:57] VITALS: BP 142/65; PULSE 73; TEMP 98.2
[2019-08-13 07:34] LABS: CALCIUM 8.9 mg/dL (8.4-10.2); CREATININE, serum 1.93 (0.52-1.25); POTASSIUM 4.5 mmol/L (3.4-5.0)
[2019-08-13 07:35] LABS: BASO # 0.1 (0.0-0.2); EOS # 0.4 (0.0-0.7); EOS % 3.1 % (0-4.0); GRAN # 9.4 (1.4-6.5); GRAN % 81.9 % (42.2-75.2); LYMPH # 0.6 (1.2-3.4); LYMPH % 5.2 % (20.0-51.0); MEAN CELL VOLUME 91 fl (80.0-100.0); MEAN CORPUSCULAR HGB CONC 30 g/dl (33.0-37.0); MEAN PLATELET VOLUME 12.3 fl (7.4-10.4); MONO % 8.4 % (1.7-9.3); PLATELET COUNT 135 K/mm3 (130-400); RED BLOOD COUNT 3.17 M/mm3 (4.10-5.30); REDCELL DISTRIBUTION WIDTH-CV 16.9 % (11.5-14.5)
[2019-08-13 07:58] LABS: HEMATOCRIT 28.9 % (37.0-47.0); HEMOGLOBIN 8.8 g/dl (12.5-16.0); MEAN CORPUSCULAR HEMOGLOBIN 28 pg (27.0-31.0)
[2019-08-13 08:25] VITALS: BP 126/41; PULSE 74; TEMP 98.3
--- NOTE | 2019-08-13 09:16 | NUR ---
STEFANI faxed updates to Lawanda at [facility] and to Jaswant at [facility]. Awaiting Covid-19 results.
--- NOTE | 2019-08-13 11:15 | NUR ---
SW met with the patient and the patient's daughter (via Facetime) to revisit the discharge plan. All questions regarding transfer to [facility] were answered. Will continue to miguel.
[2019-08-13 11:49] VITALS: BP 128/44; PULSE 81; TEMP 97.9
[2019-08-13 14:50] VITALS: BP 123/43; PULSE 78; TEMP 98.1
--- NOTE | 2019-08-13 18:00 | NUR ---
Patient has been confused most the shift. Denies nausea. Pain has been controlled with tylenol. She was anxious earlier and requested a xanax. Her family was worried that is making her confusion worse but she was confused before getting it. Panchal catheter discontinued at 1700. Patient voided once since removing catheter. No other changes at this time. Call light within reach. Bed alarm on.
[2019-08-13 20:29] VITALS: BP 128/44; PULSE 78; TEMP 98.2
--- NOTE | 2019-08-13 21:10 | NUR ---
Pt. sitting up in bed at this time. Pt. is alert and oriented to self and place. She does have some confusion noted by telling this nurse that it is Monday and that she thought it was day time. Pt. reoriented. INT to rt. wrist patent. Pt. had taken of the aquacell to the lt. hip incision. Jay intact no redness or warmth to incsion. New aquacell placed over incision. Pt. reports that her lt. hip hurts gave Tylenol. Pt. denies further needs, call light within reach, bed alarm on.
[2019-08-14 00:31] VITALS: BP 116/51; PULSE 66; TEMP 98.8
[2019-08-14 05:01] VITALS: BP 121/64; PULSE 67; TEMP 99.4
[2019-08-14 06:53] VITALS: BP 116/58; PULSE 70; TEMP 97.5
[2019-08-14 07:39] LABS: CALCIUM 9.1 mg/dL (8.4-10.2); CREATININE, serum 2.03 (0.52-1.25); POTASSIUM 3.7 mmol/L (3.4-5.0)
[2019-08-14 07:50] LABS: BASO # 0.1 (0.0-0.2); BASO % 0.9 % (0.0-2.0); EOS # 0.1 (0.0-0.7); EOS % 0.6 % (0-4.0); GRAN # 8.5 (1.4-6.5); LYMPH # 0.7 (1.2-3.4); LYMPH % 6.7 % (20.0-51.0); MEAN CELL VOLUME 90 fl (80.0-100.0); MEAN CORPUSCULAR HGB CONC 31 g/dl (33.0-37.0); MEAN PLATELET VOLUME 11.8 fl (7.4-10.4); MONO # 0.9 (0.1-0.6); MONO % 8.4 % (1.7-9.3); PLATELET COUNT 171 K/mm3 (130-400); RED BLOOD COUNT 3.26 M/mm3 (4.10-5.30); REDCELL DISTRIBUTION WIDTH-CV 16.8 % (11.5-14.5)
[2019-08-14 07:53] LABS: HEMATOCRIT 29.3 % (37.0-47.0); MEAN CORPUSCULAR HEMOGLOBIN 28 pg (27.0-31.0)
[2019-08-14] MEDS ORDERED: LOPRESSOR 225 MG/TAB PO (09:17)
[2019-08-14] MEDS ORDERED: NORCO 325 MG-51 TAB PO (09:18)
[2019-08-14] MEDS ORDERED: ASPIRIN 32325 MG/TA1 PO (09:18)
[2019-08-14] MEDS ORDERED: XANAX 0.5MG0.5 MG PO (09:19)
[2019-08-14 09:20] VITALS: BP 116/58; PULSE 70; TEMP 97.5
[2019-08-14] MEDS ORDERED: TYLENOL 500MG500 MG PO (09:20)
--- NOTE | 2019-08-14 09:38 | NUR ---
The patient is to tentatively discharge to [facility] today, 08/13. STEFANI presented the IM form to the patient. The patient understood and provided verbal consent for STEFANI to sign on her behalf. A copy was provided to the patient and original was placed in the chart. STEFANI faxed discharge orders to Lawanda at [facility]. Transport time is at 11:30. STEFANI informed the patient and the patient's nurse, all were in agreeance. SW to contact the patient's daughter with transport time. There are no additional needs at this time.
--- NOTE | 2019-08-14 10:12 | NUR ---
Patient resting in bed. She has been up to the chair this am for breakfast. Up with walker & gaitbelt. Plans to transfer to [facility].
--- NOTE | 2019-08-14 11:47 | NUR ---
Report called to [facility]. All questions answered. Patient transferred via wheelchair with all belongings. Int dc. It Project Manager assisted patient to dress. Patient continues to have slight confusion. Reporiented as needed
== END 2019-08-14 11:49 | DRG 470 ==
LOC: COL.ER 20:03 → JCC 20:56 → SURG 08-11 14:07 → JCC 08-11 14:07 → SURG 08-11 15:26
PROVIDERS: Family Medicine; Nurse Practitioner Family; Orthopaedic Surgery; Physician Assistant; ADMIT Student in an Organized Health Care Education/Training Program
PROC: 0SRB0J9 Replacement of Left Hip Joint with Synthetic Substitute, Cemented, Open Approach (ICD-10-PCS; principal; 2019-08-11 11:30)
DX: S72.012A Unspecified intracapsular fracture of left femur, initial encounter for closed fracture (principal); I13.0 Hypertensive heart and chronic kidney disease with heart failure and stage 1 through stage 4 chronic kidney disease, or unspecified chronic kidney disease; N17.9 Acute kidney failure, unspecified; I50.22 Chronic systolic (congestive) heart failure; W19.XXXA Unspecified fall, initial encounter; E78.5 Hyperlipidemia, unspecified; I25.10 Atherosclerotic heart disease of native coronary artery without angina pectoris; I48.0 Paroxysmal atrial fibrillation; E11.22 Type 2 diabetes mellitus with diabetic chronic kidney disease; E03.9 Hypothyroidism, unspecified; H81.10 Benign paroxysmal vertigo, unspecified ear; J44.9 Chronic obstructive pulmonary disease, unspecified; K22.2 Esophageal obstruction; D64.9 Anemia, unspecified; K21.9 Gastro-esophageal reflux disease without esophagitis; Z20.828 Contact with and (suspected) exposure to other viral communicable diseases; F03.90 Unspecified dementia, unspecified severity, without behavioral disturbance, psychotic disturbance, mood disturbance, and anxiety; N18.3 Chronic kidney disease, stage 3 (moderate); I34.0 Nonrheumatic mitral (valve) insufficiency; D72.829 Elevated white blood cell count, unspecified; Z86.73 Personal history of transient ischemic attack (TIA), and cerebral infarction without residual deficits; Z95.1 Presence of aortocoronary bypass graft; Z87.891 Personal history of nicotine dependence
CPT/HCPCS: 99223-AI; 99233-AI; 99239; A9284; C1713; C1776; J0171; J0690; J2060; J2250; J2270; J2370; J2704; J7030; J7050; J7120

== ENCOUNTER → 2019-09-16 | Outpatient (CLI) | payer MEDICARE ==
[~2019-09-16] MED LIST changes: +ASPIRIN 32325 MG/TA1 PO; +QVAR REDIHALE10.6 G1 IH; +TYLENOL 500MG500 MG PO
[2019-09-16 14:12] LABS: ALBUMIN 3.9 gm/dL (3.5-5.0); BILIRUBIN,TOTAL 0.4 mg/dL (0.0-1.0); CALCIUM 9.7 mg/dL (8.4-10.2); CREATININE, serum 1.9 (0.52-1.25); POTASSIUM 3.4 mmol/L (3.4-5.0); TOTAL PROTEIN 7.3 gm/dL (6.4-8.2)
== END ==
LOC: ZCOL.LAB 12:57
PROVIDERS: Family Medicine
DX: N17.9 Acute kidney failure, unspecified (principal)

== ENCOUNTER → 2020-03-18 | Outpatient (CLI) | payer MEDICARE | LOC: ZCOL.LAB 12:24 | DX: L97.309 Non-pressure chronic ulcer of unspecified ankle with unspecified severity (principal) ==

== ENCOUNTER 2021-03-26 11:16 | Emergency (ER) | payer MEDICARE ==
[~2021-03-26] VITALS: Ht 167.6 cm; Wt 66.8 kg
[2021-03-26 11:39] VITALS: TEMP 97.6
[2021-03-26 12:12] LABS: BASO # 0.1 K/mm3 (0.0-0.2); BASO % 0.5 % (0.0-2.0); EOS % 0.1 % (0.0-4.0); GRAN # 11.5 K/mm3 (1.4-6.5); GRAN % 78.6 % (42.2-75.2); HEMATOCRIT 39.3 % (37.0-47.0); HEMOGLOBIN 12.6 g/dl (12.5-16.0); LYMPH # 1.5 K/mm3 (1.2-3.4); LYMPH % 10.3 % (20.0-51.0); MEAN CELL VOLUME 91 fl (80.0-100.0); MEAN CORPUSCULAR HEMOGLOBIN 29 pg (27-31); MEAN CORPUSCULAR HGB CONC 32 g/dl (33.0-37.0); MEAN PLATELET VOLUME 10.7 fl (7.4-10.4); MONO # 1.5 K/mm3 (0.1-0.6); PLATELET COUNT 187 K/mm3 (130-400); RED BLOOD COUNT 4.34 M/mm3 (4.10-5.30); REDCELL DISTRIBUTION WIDTH-CV 14.2 % (11.5-14.5)
[2021-03-26 12:36] LABS: ALBUMIN 3.2 gm/dL (3.4-4.8); BILIRUBIN,TOTAL 0.8 mg/dL (0.2-1.2); CALCIUM 9.2 mg/dL (8.4-10.2); CREATININE, serum 2.37 mg/dL (0.57-1.11); POTASSIUM 3.6 mmol/L (3.5-4.5)
[2021-03-26 14:25] LABS: COLLECTION METHOD CLEAN CATCH
[2021-03-26 14:37] LABS: MUCOUS Present (NOT PRESENT); PH 6 (5-8); URINE APPEARANCE Hazy (CLEAR/HAZY); URINE BACTERIA None Seen /hpf (NONE SEEN); URINE BILIRUBIN Negative (NEGATIVE); URINE BLOOD Negative (NEGATIVE); URINE COLOR Yellow (YELLOW); URINE GLUCOSE Negative (NEGATIVE); URINE KETONE Negative (NEGATIVE); URINE LEUKOCYTE ESTERASE 2+ (NEGATIVE); URINE NITRATE Negative (NEGATIVE); URINE PROTEIN(semi-quant) Negative (NEGATIVE); URINE RBC 0-2 /hpf (0-2); URINE UROBILINOGEN Negative (NEGATIVE)
[2021-03-26] MEDS ORDERED: CEPHALEXIN500 M1 PO (15:12)
[2021-03-26] MEDS ORDERED: DIFLUCAN150 MG PO (15:53)
[2021-03-26 16:05] VITALS: BP 130/71; PULSE 67
== END 2021-03-26 16:05 | disposition home or self-care (01) ==
LOC: COL.ER 11:16
PROVIDERS: Personal Emergency Response Attendant
DX: N39.0 Urinary tract infection, site not specified (principal); R41.0 Disorientation, unspecified; J44.9 Chronic obstructive pulmonary disease, unspecified; I11.0 Hypertensive heart disease with heart failure; I48.91 Unspecified atrial fibrillation; E78.5 Hyperlipidemia, unspecified; I25.10 Atherosclerotic heart disease of native coronary artery without angina pectoris; I50.9 Heart failure, unspecified; I25.2 Old myocardial infarction; Z88.2 Allergy status to sulfonamides; Z79.899 Other long term (current) drug therapy; Z79.82 Long term (current) use of aspirin
CPT/HCPCS: J0696

== ENCOUNTER 2022-05-18 08:47 | Outpatient (CLI) | payer MEDICARE ==
[~2022-05-18] VITALS: Ht 167.7 cm; Wt 68.0 kg
[~2022-05-18 08:47] MED LIST changes: +CEPHALEXIN500 M1 PO; +DIFLUCAN150 MG PO
[2022-05-18 09:27] VITALS: BP 131/75; PULSE 52; TEMP 97.8
[2022-05-18 09:36] LABS: PROTHROMBIN TIME 11.5 SECONDS (9.7-12.8)
[2022-05-18 09:38] LABS: HEMATOCRIT 42.3 % (37.0-47.0); MEAN CELL VOLUME 91 fl (80.0-100.0); MEAN CORPUSCULAR HEMOGLOBIN 28 pg (27-31); MEAN CORPUSCULAR HGB CONC 31 g/dl (33.0-37.0); MEAN PLATELET VOLUME 10.9 fl (7.4-10.4); PLATELET COUNT 187 K/mm3 (130-400); RED BLOOD COUNT 4.66 M/mm3 (4.10-5.30); REDCELL DISTRIBUTION WIDTH-CV 18.8 % (11.5-14.5)
[2022-05-18 09:41] LABS: CALCIUM 10.1 mg/dL (8.4-10.2); CREATININE, serum 2.51 mg/dL (0.57-1.11); POTASSIUM 3.4 mmol/L (3.5-4.5)
[2022-05-18] MEDS ORDERED: VITAMIN D31000 IU PO (09:57)
[2022-05-18] MEDS ORDERED: LASIX 40MG TABL40 MG PO (10:05)
[2022-05-18] MEDS ORDERED: IMDUR 30MG30 MG/TAB PO (10:06)
[2022-05-18] MEDS ORDERED: ZAROXOLYN 2.52.5 MG PO (10:07)
[2022-05-18] MEDS ORDERED: K-DUR20 MEQ PO (10:08)
[2022-05-18 11:50] VITALS: BP 130/52; PULSE 45
--- NOTE | 2022-05-18 11:50 | NUR ---
recieved report, Pt rests in bed, awake and alert. Has no c/o. call light in reach, family in room
[2022-05-18 12:05] VITALS: BP 134/52; PULSE 46
[2022-05-18 12:20] VITALS: BP 129/58; PULSE 46
[2022-05-18 12:35] VITALS: BP 134/58; PULSE 46
--- NOTE | 2022-05-18 12:38 | NUR ---
pt sits up in bed, takes soda and snack, no c/o
[2022-05-18 13:00] VITALS: BP 116/78; PULSE 50
--- NOTE | 2022-05-18 13:00 | NUR ---
PT SITS ON SIDE OF BED, IV D'CD. REVIEWED DISCHARGE INST. WITH PT ON ACTIVITY TODAY AND FOLLOWUP, WITH VERBAL UNDERSTANDING. PT THEN DRESSED, DISCHARGED VIA OWN W/C TO CAR WITH FAMILLY AT 1330
== END 2022-05-18 13:30 | disposition home or self-care (01) ==
LOC: COL.RAD 08:47
PROVIDERS: Internal Medicine Cardiovascular Disease
DX: I08.0 Rheumatic disorders of both mitral and aortic valves (principal)
CPT/HCPCS: J2704